=== PATIENT | male | born 1960 | race Caucasian/White ===

== ENCOUNTER → 2021-12-28 | Outpatient (CLI) | payer OTHER ==
[~2021-12-28] MED LIST: ASPI500T50 PO; HYDR1TAB PO; MULT-239; MULT1CAP27 PO; NF-ESOM40C PO; SCR1T PO; SULF1TAB35 PO
--- NOTE | 2021-12-28 16:00 | Diagnostic Imaging Report ---
INDICATION: Fracture 3 years ago. Current pain for the last 3 weeks. EXAMINATION: Right wrist 12/28/2021 FINDINGS: 3 views of the wrist. There are lucencies within the proximal aspect of the scaphoid consistent with subchondral cyst, perhaps degenerative in nature. Multiple other lucencies throughout the carpals seen diffusely with areas of narrowing in the intercarpal rows. Mild narrowing and spurring is seen at the 1st metacarpophalangeal joint. 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 No acute osseous abnormality is appreciated. IMPRESSION: 1. Diffuse chronic findings, as above, with no acute osseous abnormality. 2. 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 Dictated by: Dictated on workstation # [id number]
== END ==
LOC: ORTHO 10:10
PROVIDERS: ATTEND Orthopaedic Surgery
DX: M19.031 Primary osteoarthritis, right wrist (principal)
CPT/HCPCS: 73110; 99203